=== PATIENT | female | born 1990 | race Caucasian/White ===

== ENCOUNTER 2024-12-08 22:21 | Emergency (ER) | payer SELFPAY ==
[2024-12-08 22:43] VITALS: BP 150/96; PULSE 89; TEMP 36.9; O2SAT 97; BMI 78.3
--- NOTE | 2024-12-08 23:32 | CT_ITS ---
The [address] [address] Patient Name: LYN MOMIN MRN: [id number] date: 1990 Sex: F Assigned Patient Location: ER Current Patient Location: Accession/Order Number: [id number] Exam Date: 12/09/2024 05:54 Report Date: 12/09/2024 06:01 At the request of: GIL SOUZA MD Procedure: CT facial bones w con CT facial bones w con 12/08/2024 11:58 PM SIGNS AND SYMPTOMS: ^Left mandicular swelling/dental infection ^N CONTRAST: 100 mL of intravenous Omnipaque 300 TECHNIQUE: Multidetector CT axial slices of the facial bones were obtainedwith IV contrast. Helical, sagittal, coronal, and 3-D reconstructions were performed and viewed on a separate workstation and reviewed to further define anatomy and possible pathology. CT was performed with one or more of the following dose reduction techniques: Automated exposure control, adjustment of the mA and/or kV according to patient size, or use of iterative reconstruction technique. COMPARISON: None. FINDINGS: Fracture: None. Paranasal sinuses and mastoids: There is mild mucosal thickening in the left maxillary sinus. Soft tissue swelling: There is soft tissue swelling in the left perimandibular region along the body of the mandible. 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 There is a small accompanying perimandibular abscess extending into the adjacent mucosa measuring 1.6 x 0.9 x 2.2 cm in greatest dimension. There are mildly prominent left level 1 lymph nodes which are presumably reactive in nature. Globes: Intact. Upper aerodigestive tract: Within normal limits. Joints: Intact. Temporal mandibular joints: Intact. Infratemporal fossa: Within normal limits. 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 There is a small accompanying perimandibular abscess extending into the adjacent mucosa measuring 1.6 x 0.9 x 2.2 cm in greatest dimension. There is accompanying perimandibular subcutaneous fat stranding suggesting left perimandibular cellulitis. Impression dictated by: Elliott Gutierrez M.D. 12/09/2024 6:01 AM Dictation Location: [place] [address] Electronically authenticated by: [id number] Y Date: 12/09/2024 06:01
[2024-12-08 23:51] LABS: Hematocrit 42.3 % (36.0-48.0); Hemoglobin 14.2 g/dL (12.0-16.0); Immature Granulocytes Abs Auto 0.01 10^3/uL (0.00-0.03); Immature Granulocytes Pct Auto 0.1 % (0.0-0.5); Lymphocytes Absolute Auto 2.1 10^3/uL (1.2-3.8); Mean Corpuscular HGB Conc 33.6 g/dL (29.9-35.2); Mean Corpuscular Hemoglobin 28.7 pg (26.7-34.0); Mean Corpuscular Volume 85.6 fL (81.0-99.0); Platelet Count 271 10^3/uL (150-450); Red Blood Count 4.94 10^6/uL (4.20-5.40); White Blood Count 6.9 10^3/uL (4.0-11.0)
--- NOTE | 2024-12-09 00:04 | ED.DENTAL1 ---
HPI - Dental/Oral General Chief complaint: Dental/Oral Stated complaint: DENTAL PAIN Time Seen by Provider: 12/08/24 22:51 Source: patient Mode of arrival: walk-in History of Present Illness HPI Narrative: This 34-year-old female presents for evaluation of left-sided jaw pain and swelling. She has a broken decayed left posterior molar. She states the symptoms started yesterday. She states she feels a lot of pressure in her jaw. She does not have any fever. She is not having difficulty opening or closing her mouth. She does not have any fullness in her anterior neck, difficulty swallowing or other concerns. She is not diabetic. She sees [facility] but states she cannot get into them until February. Related Data Home Medications ?Medication ?Instructions ?Recorded ?Confirmed No Known Home Medications 12/08/24 12/08/24 Allergies Allergy/AdvReac Type Severity Reaction Status Date / Time No Known Drug Allergies Allergy Verified 12/08/24 22:50 Review of Systems ROS Status of ROS 10 or more systems reviewed and unremarkable except as noted in history and below PFSH PFSH Social History Little interest or pleasure in doing things: not at all Feeling down, depressed, or hopeless: not at all Exam Narrative Exam Narrative: Vital signs and Nursing Notes reviewed: Patient is afebrile with a normal pulse, blood pressure is elevated 150/96, she is not hypoxic with pulse ox of 97% on room air General: Awake, alert, oriented, no acute distress, lying comfortably on the stretcher HEENT: Normocephalic atraumatic, mucous membranes are moist and pink, eyes are clear, normal conjunctiva, vision is grossly intact, there is mild firmness and tenderness to the left lateral mandibular area. Adjacent to this area is a firm tender nodular area in the mandibular area. There is a broken, decayed tooth #17 with local gingival swelling. There is no sign of necrotizing gingivitis. There is no pooling of secretions, there is no swelling of the tongue, uvula or pharyngeal soft tissues. Neck: Supple, no meningeal signs, no anterior or posterior cervical lymphadenopathy Chest: Lungs are clear to auscultation with good air entry, there is no wheezing rhonchi or rales appreciated no accessory muscle use, patient is speaking in complete sentences-no chest wall tenderness to palpation CVS: Regular rate and rhythm S1-S2, no murmurs rubs or gallops, pulses are brisk and equal bilaterally ABD: Soft, nondistended, nontender, no rebound guarding or rigidity, bowel sounds are normal, no pulsatile masses appreciated Extremities: Moving all extremities, no lower extremity tenderness or swelling noted Skin: Normal in appearance without rash,pallor, petechiae or purpura Neuro: No focal deficits Constitutional Vital Signs, click to edit/add: Last Vital Signs Temp 98.5 F 12/09/24 05:06 Pulse 64 12/09/24 05:06 Resp 18 12/09/24 05:06 BP 115/105 H 12/09/24 05:06 Pulse Ox 98 12/09/24 05:06 O2 Del Method Room Air 12/08/24 22:43 Course Vital Signs Vital signs: Vital Signs Temperature 98.5 F 12/08/24 22:43 Pulse Rate 89 12/08/24 22:43 Respiratory Rate 16 12/08/24 22:43 Blood Pressure 150/96 H 12/08/24 22:43 Pulse Oximetry 97 12/08/24 22:43 Oxygen Delivery Method Room Air 12/08/24 22:43 Temperature 98.5 F 12/09/24 05:06 Pulse Rate 64 12/09/24 05:06 Respiratory Rate 18 12/09/24 05:06 Blood Pressure 115/105 H 12/09/24 05:06 Pulse Oximetry 98 12/09/24 05:06 Oxygen Delivery Method Room Air 12/08/24 22:43 MDM - Dental/Oral MDM Narrative Medical decision making narrative: This 34-year-old female presents for evaluation of dental pain and left-sided facial/jaw swelling. Symptoms started yesterday. She is not diabetic. She has not had a fever. She goes to [facility] but states she cannot get into see them until February. She has a markedly decayed and broken tooth #17 adjacent to that she has gingival erythema and tenderness with swelling in the left mandibular area. An IV was placed and she was medicated with IV Toradol and IV Unasyn. Routine labs are ordered. She has a normal white count hemoglobin. Electrolytes are normal. CT scan of the facial bones was ordered and took an excessively long time to be read. The patient requested to be discharged home. She was continually reevaluated in the emergency department. She has not had any worsening in her symptoms. The area of swelling on the inside of her mouth appears to be coming more fluctuant and possibly will open up. She was given an additional dose of Carpenter while awaiting for the CT scan. I explained to her that I will call her with the CT scan results and leave a copy of the report at registration. She will call today to attempt to make a dental appointment. I suggested she try [facility] and dentistry as they may be able to get her in sooner than her dentist. Lab Data Labs: Lab Results 12/08/24 Range/Units 23:45 WBC 6.9 (4.0-11.0) 10^3/uL RBC 4.94 (4.20-5.40) 10^6/uL Hgb 14.2 (12.0-16.0) g/dL Hct 42.3 (36.0-48.0) % MCV 85.6 (81.0-99.0) fL MCH 28.7 (26.7-34.0) pg MCHC 33.6 (29.9-35.2) g/dL RDW 13.5 (11.0-15.0) % Plt Count 271 (150-450) 10^3/uL MPV 10.1 (9.5-13.5) fL Neut % (Auto) 56.2 (43.0-75.0) % Lymph % (Auto) 30.7 (20.5-60.0) % [place] % (Auto) 7.2 (1.7-12.0) % Eos % (Auto) 5.4 (0.9-7.0) % Baso % (Auto) 0.4 (0.2-2.0) % Neut # (Auto) 3.9 (1.4-6.5) 10^3/uL Lymph # (Auto) 2.1 (1.2-3.8) 10^3/uL [place] # (Auto) 0.5 (0.3-0.8) 10^3/uL Eos # (Auto) 0.4 (0.0-0.7) 10^3/uL Baso # (Auto) 0.0 (0.0-0.1) 10^3/uL Abs Immat Gran (auto) 0.01 (0.00-0.03) 10^3/uL Imm/Tot Granulo (auto) 0.1 (0.0-0.5) % Sodium 139 (136-145) mmol/L Potassium 3.8 (3.5-5.1) mmol/L Chloride 103 (98-107) mmol/L Carbon Dioxide 29.8 (21.0-32.0) mmol/L Anion Gap 10.0 BUN 11.0 (7.0-18.0) mg/dL Creatinine 1.10 H (0.55-1.02) mg/dL Est GFR ( Amer) >60 (>=60 mL/min/1.73m^2) Est GFR (Non-Af Amer) 57 L (>=60 mL/min/1.73m^2) BUN/Creatinine Ratio 10.0 Glucose 97 (74-106) mg/dL Calcium 9.1 (8.5-10.1) mg/dL Total Bilirubin 0.3 (0.2-1.0) mg/dL AST 18 (15-37) U/L ALT 37 (14-59) U/L Alkaline Phosphatase 80 (46-116) U/L Total Protein 7.8 (6.4-8.2) g/dL Albumin 3.3 L (3.4-5.0) g/dL Globulin 4.5 g/dL Albumin/Globulin Ratio 0.7 Discharge Plan Discharge Chief Complaint: Dental/Oral Clinical Impression: Dental abscess Patient Disposition: Home, Self-Care Time of Disposition Decision: 05:08 Condition: Good Prescriptions / Home Meds: No Action No Known Home Medications Print Language: Lao Instructions: Dental Abscess (ED) Referrals: Physician,Non-Staff, MD [Primary Care Provider] - 1 week
[2024-12-09 00:06] LABS: Alanine Aminotransferase 37 U/L (14-59); Albumin Globulin Ratio 0.7; Albumin Level 3.3 g/dL (3.4-5.0); Alkaline Phosphatase 80 U/L (46-116); Anion Gap 10.0; Aspartate Amino Transferase 18 U/L (15-37); Blood Urea Nitrogen 11.0 mg/dL (7.0-18.0); Calcium 9.1 mg/dL (8.5-10.1); Carbon Dioxide 29.8 mmol/L (21.0-32.0); Chloride 103 mmol/L (98-107); Estimated GFR (African America >60 (>=60 mL/min/1.73m^2); Estimated GFR (Non-African Ame 57 (>=60 mL/min/1.73m^2); Globulin 4.5 g/dL; Glucose 97 mg/dL (74-106); Potassium 3.8 mmol/L (3.5-5.1); Sodium 139 mmol/L (136-145); Total Protein 7.8 g/dL (6.4-8.2)
[2024-12-09] MEDS: KETOROLAC TROMETHAMINE 30 MG/ML VIAL IVP (00:53)
[2024-12-09] MEDS: 0.9 % SODIUM CHLORIDE 1,000 ML 1000 ML IV (00:53)
[2024-12-09] MEDS: AMPICILLIN SODIUM/SULBACTAM NA 3 GM in 0.9 % SODIUM CHLORIDE 100 ML IV (00:54)
[2024-12-09] MEDS: HYDROCODONE/ACET 5-325 MG TABLET 1 TAB PO ×2 (02:16→04:13)
--- NOTE | 2024-12-09 02:59 | PC.NURSE ---
this patient lying awake on her left side on the bed, this patient voices her pain is better now 4/10 and she is aware waiting on ct results this patient voices no concerns, needs and shows no signs of distress
--- NOTE | 2024-12-09 04:04 | PC.NURSE ---
DR Bejarano informed patient voices her tooth pain is not any better.
--- NOTE | 2024-12-09 04:38 | PC.NURSE ---
this patient sitting upright awake and alert on the bed looking at her cell phone, this patient voices her pain is better now. this patient still aware waiting for ct results to come back
[2024-12-09 05:06] VITALS: BP 115/105; PULSE 64; TEMP 36.9; O2SAT 98
--- NOTE | 2024-12-09 05:20 | PC.NURSE ---
i gave this patient verbal and written discharge orders along with 3 Rx, and this patient voices yes to understanding the discharge orders and Rx. at time of discharge this patient voices no concerns, needs and shows no signs of distress. i informed this patient when taking the pain medication not drive any motor vehicles, operate any machinery and not to go to work, plus take a stool softer.
--- NOTE | 2024-12-09 07:21 | PC.NURSE ---
CT report is back and Dr. Sellers reviewed due to Dr. eBjarano shift change. Pt to be told to have dental abscess and early cellulitis. Antibiotics were prescribed and she must continue to take. Be sure to follow up with [facility] and return to the ER if there are any further problems. Call made to this paitent's cell phone and it did not go through, stating the phone was not inservice. Copy of her report left at the ER registration per Dr. Davis request.
== END 2024-12-09 05:18 | disposition home or self-care (01) ==
PROVIDERS: Emergency Provider Emergency Medicine
DX: K04.7 Periapical abscess without sinus (principal); S02.5XXA Fracture of tooth (traumatic), initial encounter for closed fracture; R68.84 Jaw pain; K12.2 Cellulitis and abscess of mouth; L03.221 Cellulitis of neck
CPT/HCPCS: 36415; 70487; 80053; 85025; 96365; 96375; 99285; J0295; J1885; J2405; Q9967